=== PATIENT | female | born 1980 | race Hispanic/Latino ===

== ENCOUNTER 2025-01-10 21:05 | Emergency (ER) | payer OTHER ==
[~2025-01-10] VITALS: Ht 157.5 cm; Wt 61.7 kg
[2025-01-10] MEDS ORDERED: KETOROLAC TROMETHAMINE 30 MG/ML VIAL IV STA (22:01)
[2025-01-10] MEDS ORDERED: FAMOTIDINE 20 MG/2 ML VIAL IV STA (22:01)
[2025-01-10] MEDS ORDERED: SODIUM CHLORIDE 0.9% 1000ML 1,000 ML IV SCH (22:15)
[2025-01-10] MEDS ORDERED: IOPAMIDOL 370 MG/ML 100 ML INFUS..BTL INJ ONE (23:12)
[2025-01-11] MEDS: SODIUM CHLORIDE 0.9% 1000ML 1,000 ML IV SCH (00:24)
[2025-01-11] MEDS: MAGNESIUM/ALUMINUM/SIMETHICONE 30 ML UDC PO ONE (00:24)
[2025-01-11] MEDS: KETOROLAC TROMETHAMINE 30 MG/ML VIAL IV STA (00:24)
[2025-01-11] MEDS: FAMOTIDINE 20 MG/2 ML VIAL IV STA (00:25)
[2025-01-11] MEDS: ONDANSETRON HCL INJ 2MG/ML 2ML 2 MG/ML VIAL IV STA (00:25)
[2025-01-11 01:25] VITALS: PULSE 77; RESP 16; TEMP 98.9
[2025-01-11 01:33] VITALS: BP 109/72; PULSE 77; RESP 16; TEMP 98.9; O2SAT 99
== END 2025-01-11 01:27 | disposition home or self-care (01) ==
LOC: FSED 21:50
DX: R11.2 Nausea with vomiting, unspecified (principal); K29.70 Gastritis, unspecified, without bleeding; R10.13 Epigastric pain; E03.9 Hypothyroidism, unspecified
CPT/HCPCS: 36415; 74177; 80053; 81003; 81025; 83690; 99284; J1308; J1885; J2405; J7030; Q9967